=== PATIENT | female | born 1960 | race Caucasian/White ===

== ENCOUNTER 2016-03-13 12:07 | Emergency (ER) | payer BC, OTHER ==
[2016-03-13 12:42] VITALS: BP 107/68; PULSE 65; RESP 16; TEMP 97.9; O2SAT 100
--- NOTE | 2016-03-13 13:40 | UCPHY ---
H & P Time Seen by Provider: 03/13/16 13:29 Patient Type: New HPI/ROS: CHIEF COMPLAINT: Puncture wound right hand HISTORY OF PRESENT ILLNESS: 55-year-old immunocompetent female was trail running this morning when she slipped on ice and sustained a puncture wound to her right here and hypo thenar eminence gives a tree branch. Not through and through. She believes her tetanus is likely up-to-date but is unsure. No paresthesia. No sensory or motor deficit. PHYSICAL EXAM (Prior to examination, patient consented to physical exam, hands were washed and my usual and customary physical exam procedures followed) 1) GENERAL: Well-developed, well-nourished, alert and oriented. 2) HEAD: Normocephalic 3) HEENT: sclera anicteric 4) LUNGS: Breathing comfortably. 5) SKIN: On the right hand hypo thenar eminence she has a 6 mm puncture wound which is not through and through. Not infected. 6) MUSCULOSKELETAL: Compartments are soft. No ecchymosis Smoking Status: Never smoked Constitutional: Initial Vital Signs Temperature (C) 36.6 C 03/13/16 12:35 Heart Rate 65 03/13/16 12:35 Respiratory Rate 16 03/13/16 12:35 Blood Pressure 107/68 03/13/16 12:35 O2 Sat (%) 100 03/13/16 12:35 O2 Delivery Mode Room Air Allergies/Adverse Reactions: No Known Allergies Allergy (Unverified 03/13/16 12:39) Home Medications: Medication Instructions Recorded Cephalexin [Keflex] 500 mg PO TID 5 Days 03/13/16 FLUOXETINE HCL 03/13/16 ED Images - Extremities Hands Front Left/Right: 1 - puncture wound MDM/Departure - MDM Procedures: 1% plain lidocaine wound infiltration by myself. Irrigation by ER staff and dressing by ER staff ED Course/Re-evaluation: This is a non through and through puncture wound to her right hand. I recommended healing via secondary intention. Patient's wound has been copiously irrigated and dressed by ER staff. I am starting her on prophylactic antibiotics for the next 5 days. Usual and customary wound orthopedic precautions provided. Her compartments are soft no evidence of compartment syndrome. She is unsure whether her tetanus is up-to-date. Today is Monday. She prefers to contact her primary care provider tomorrow to see when she last had updated. Recommend she have an updated, if necessary, within the next 72 hours. She feels comfortable being discharged. - Depart Disposition: Home, Routine, Self-Care Clinical Impression: Puncture wound of right hand Qualifiers: Encounter type: initial encounter Qualifier Code: (S61.431A) Puncture wound without foreign body of right hand, initial encounter Condition: Good Instructions: Puncture Wound (ED) Additional Instructions: Return to the ER if you develop redness, swelling, discharge, warmth to the wound, red streaks going up your arm , or any other symptoms that concern you. Call your primary care provider tomorrow (Monday) to find out when you last tetanus shot was. If it has been more than 10 years you should have this updated within the next 3 days Prescriptions: Cephalexin [Keflex] 500 mg PO TID 5 Days Referrals: Franci Medrano MD [Primary Care Provider] - 2-3 days, call for appt. (Call your primary care provider tomorrow to find out if your tetanus shot was in the last 10 years. ) - PQRS PQRS Measurement: n/a
== END 2016-03-13 13:59 | disposition home or self-care (01) ==
LOC: CED 12:07
PROC: 3E10X8Z Irrigation of Skin and Mucous Membranes using Irrigating Substance (ICD-10-PCS; principal; 2016-03-13)
DX: S61.431A Puncture wound without foreign body of right hand, initial encounter (principal); W00.0XXA Fall on same level due to ice and snow, initial encounter
CPT/HCPCS: G0463-PO

== ENCOUNTER 2018-06-11 19:47 | Emergency (ER) | payer OTHER ==
[2018-06-11] MEDS ORDERED: HYDROCODONE/APAP 5/325 TAB PO ONE (20:29)
[2018-06-11] MEDS ORDERED: HYDROCOD/APAP 5/325 PREPACK#6 BTL TAKEHOME ONE (20:29)
[2018-06-11] MEDS ORDERED: DEXAMETHASONE 4 MG TAB PO ONE (20:33)
--- NOTE | 2018-06-11 20:53 | EDPHY ---
H & P Time Seen by Provider: 06/11/18 20:08 HPI/ROS: CHIEF COMPLAINT: Right-sided neck, shoulder and upper back pain HISTORY OF PRESENT ILLNESS: Patient states she has history of some neck and back problems but today complaining of significant right-sided neck, shoulder, upper back pain. She thinks she has a "pinched nerve". She did go to see her physical therapist today and had some traction performed. She states she probably over did it with working out with weights on Monday, gardening yesterday as well as a run. She states she has had neck issues for years but the inversion table usually helps. Today she is in distress stating that nothing has helped. She has taken ibuprofen, cyclobenzaprine, 1 hydrocodone at 6:30 p.m.. She also has used ice. She denies weakness. She states she has some pins and needles feeling to her right arm but no sensory loss. She has had no new trauma. Denies fevers or chills. No chest pain or shortness of breath. No headache, vision changes, voice changes. REVIEW OF SYSTEMS: Constitutional: No fever, no chills. Eyes: No discharge. ENT: No sore throat. Cardiovascular: No chest pain, no palpitations. Respiratory: No cough, no shortness of breath. Gastrointestinal: No abdominal pain, no vomiting. Genitourinary: No dysuria. Musculoskeletal: Per HPI Skin: No rashes. Neurological: No headache. General Appearance: Alert, moderate distress Eyes: Pupils equal and round no pallor or injection. ENT, Mouth: Mucous membranes moist. No lymphadenopathy. Respiratory: There are no retractions, lungs are clear to auscultation. Cardiovascular: Regular rate and rhythm. Gastrointestinal: Abdomen is soft and nontender, no masses, bowel sounds normal. Neurological: Cranial nerves intact, normal strength and sensation bilateral upper extremities. No focal deficits. Skin: Warm and dry, no rashes. Musculoskeletal: Neck is supple, no midline tenderness. Some tenderness to palpation to the lower right lateral neck down to the shoulder and upper back. Extremities are symmetrical, full range of motion, no edema. Psychiatric: Patient is oriented X 3, there is some agitation secondary to pain. Medical/surgical history: Attention deficit hyperactivity disorder. Social history: Denies tobacco, EtOH, drugs. Smoking Status: Never smoked Constitutional: Initial Vital Signs Temperature (C) 36.6 C 06/11/18 20:00 Heart Rate 78 06/11/18 20:00 Respiratory Rate 20 06/11/18 20:00 Blood Pressure 127/80 H 06/11/18 20:00 O2 Sat (%) 96 06/11/18 20:00 O2 Delivery Mode Room Air Allergies/Adverse Reactions: No Known Allergies Allergy (Unverified 03/13/16 12:39) Home Medications: Medication Instructions Recorded FLUOXETINE HCL 03/13/16 Adderall 20 mg (*) 06/11/18 Cyclobenzaprine 06/11/18 Dexamethasone [Decadron 4 MG (*)] 4 mg PO DAILY 2 Days #2 tab 06/11/18 Hydrocodone-Acetamin 5-325 mg 06/11/18 Medical Decision Making ED Course/Re-evaluation: 9:30 p.m. Re-evaluation. Patient states feeling better when she is lying face down however with any movement pain returns. Differential Diagnosis: Differential diagnosis includes but is not limited to musculoskeletal back pain , degenerative disc disease, vascular abnormality. After evaluation suspect patient with likely cervical radiculopathy without evidence of neurologic deficit. Significant muscle spasm component as well. Treated aggressively with medications, ice, trigger point manipulation. Given oral steroids for anti inflammatory affect. Also given [place] and single dose of Valium in the emergency department. Some mild improvement after treatment in the emergency department. Patient requesting to go home prior to resolution of her symptoms. Discussed follow-up and return precautions. Stable for discharge. - Data Points Medications Given: Discontinued Medications Hydrocodone Bitart/Acetaminophen ([place] 5/325mg Prepack#6) 1 btl TAKEHOME EDNOW ONE Stop: 06/11/18 20:30 Last Admin: 06/11/18 20:36 Dose: 1 btl Hydrocodone Bitart/Acetaminophen ([place] 5/325) 1 tab PO EDNOW ONE Stop: 06/11/18 20:30 Last Admin: 06/11/18 20:36 Dose: 1 tab Dexamethasone (Decadron) 8 mg PO EDNOW ONE Stop: 06/11/18 20:34 Last Admin: 06/11/18 20:37 Dose: 8 mg Diazepam (Valium) 5 mg IVP EDNOW ONE Stop: 06/11/18 21:31 Last Admin: 06/11/18 21:46 Dose: Not Given Diazepam (Valium) 5 mg PO EDNOW ONE Stop: 06/11/18 21:40 Last Admin: 06/11/18 21:44 Dose: 5 mg Departure - Departure Disposition: Home, Routine, Self-Care Clinical Impression: Muscle spasm Condition: Fair Instructions: Muscle Spasm (ED), Back Pain (ED) Additional Instructions: Continue ice, ibuprofen, next [place] not until midnight. Next dose of Decadron tomorrow afternoon. See your primary care physician or physical therapist tomorrow if able. Return to the emergency department if you develop weakness, shortness of breath, chest pain, nausea, vomiting, fever or other concerning new symptoms. Referrals: Franci Medrano MD [Primary Care Provider] - As per Instructions Prescriptions: Dexamethasone [Decadron 4 MG (*)] 4 mg PO DAILY 2 Days #2 tab
[2018-06-11] MEDS ORDERED: DIAZEPAM 10 MG/2 ML SYR IVP ONE (21:30)
[2018-06-11] MEDS ORDERED: DIAZEPAM 5 MG TAB ONE (21:35)
[2018-06-11] MEDS ORDERED: DIAZEPAM 5 MG TAB PO ONE (21:39)
[2018-06-11 21:57] VITALS: BP 122/84
== END 2018-06-11 21:56 | disposition home or self-care (01) ==
LOC: CED 19:47
DX: M62.838 Other muscle spasm (principal)
CPT/HCPCS: 99283-ER

== ENCOUNTER → 2018-06-30 | Outpatient (CLI) | payer OTHER | LOC: FIMAGING 15:11 | PROVIDERS: ATTEND Family Medicine | DX: Z12.31 Encounter for screening mammogram for malignant neoplasm of breast (principal) ==